=== PATIENT | female | born 1980 | race Caucasian/White ===

== ENCOUNTER → 2016-11-08 15:45 | Observation (INO) ==
[2016-11-08 14:18] LABS: Basophils % 0.5 %; Eosinophils # 0.2 K/mcL (0.0-0.6); Eosinophils % 2.2 %; Hematocrit 41.2 % (35.3-44.9); Hemoglobin 13.6 g/dL (11.5-15.4); Immature Granulocytes % 0.7 % (0-4); Lymphocytes # 1.7 K/mcL (0.6-4.6); Lymphocytes % 20.3 %; Mean Corpuscular Hemoglobin 29.8 pg (28.0-33.3); Mean Corpuscular Volume 90.2 fL (83.0-100.0); Mean Platelet Volume 11.2 fL (9.4-12.4); Monocytes # 0.6 K/mcL (0.0-1.3); Monocytes % 6.7 %; Neutrophils # 5.9 K/mcL (1.6-8.9); Platelet Count 196 K/mcL (140-400); Red Blood Count 4.57 M/mcL (3.82-4.97); Red Cell Distribution Width 12.7 % (11.5-14.5); Segmented Neutrophils % 69.6 %
[2016-11-08 14:23] LABS: Bilirubin,Urine Negative (Negative); Blood,Urine Negative (Negative); Clarity,Urine Clear (Clear); Color,Urine Yellow (Yellow); Glucose,Urine (UA) Normal (Normal); Ketones,Urine Trace mg/dL (Negative); Leukocyte Esterase,Urine Negative (Negative); Nitrite,Urine Negative (Negative); Protein,Urine Negative (Neg-Trace); Urobilinogen,Urine Normal (Normal)
[2016-11-08 14:29] LABS: Alanine Aminotransferase 16 Units/L (0-55); Aspartate Amino Transferase 15 Units/L (5-34); BUN/Creatinine Ratio 12 (6-26); Blood Urea Nitrogen 7 mg/dL (7-20); Lactate Dehydrogenase 140 Units/L (159-327); Uric Acid 5.9 mg/dL (2.6-6.0); eGFR For African Americans > 60 (> 60); eGFR For Non-African Americans > 60 (> 60)
--- NOTE | 2016-11-08 15:32 | Discharge Summary ---
Date of Encounter: 11/08/16 Time of Encounter: 15:33 - Discharge Diagnosis (1) 25 weeks gestation of Priority: Primary Status: Acute Comments: Admitted for observation (2) Anxiety Priority: Secondary Status: Acute Comments: Will restart Zoloft 25 mg daily. (3) Elevated blood pressure affecting in second trimester, antepartum Priority: Secondary Status: Acute Comments: HOLLY javier WNL. Discussed BP and lab work with Dr. Hubbard. Dr. Hubbard recommends follow up as scheduled in office. - Discharge Medications Prescriptions: Sertraline [Zoloft] 25 mg PO DAILY #30 tablet Home Medications: Insulin LISPRO [Humalog] 12 unit SQ QPM 11/08/16 [History] Multivitamin [Flintstones] 2 tab PO DAILY 11/08/16 [History] Sertraline [Zoloft] 25 mg PO DAILY #30 tablet 11/08/16 [Rx] metFORMIN [Glucophage] 1,000 mg PO BIDWM 11/08/16 [History] Allergies/Adverse Reactions: 3 Allergy/AdvReac Type Severity Reaction Status Date / Time No Known Allergies Allergy Verified 11/08/16 15:31 Data Procedures and tests throughout hospitalization: Laboratory Tests 11/08/16 11/08/16 11/08/16 14:10 14:10 14:10 WBC 8.5 RBC 4.57 Hgb 13.6 Hct 41.2 MCV 90.2 MCH 29.8 MCHC 33.0 RDW 12.7 Plt Count 196 MPV 11.2 Immature Gran % 0.7 Seg Neutrophils % 69.6 Lymphocytes % 20.3 Monocytes % 6.7 Eosinophils % 2.2 Basophils % 0.5 Neutrophils # 5.9 Lymphocytes # 1.7 Monocytes # 0.6 Eosinophils # 0.2 Basophils # 0.0 BUN 7 Creatinine 0.58 Est GFR ( Amer) > 60 Est GFR (Non-Af Amer) > 60 BUN/Creatinine Ratio 12 Uric Acid 5.9 AST 15 ALT 16 Lactate Dehydrogenase 140 L Urine Color Yellow Urine Clarity Clear Urine pH 7.0 Ur Specific [place] 1.010 Urine Protein Negative Urine Glucose (UA) Normal Urine Ketones Trace H Urine Blood Negative Urine Nitrite Negative Urine Bilirubin Negative Urine Urobilinogen Normal Ur Leukocyte Esterase Negative Labs on day of discharge: Labs from last 24 hours 08/22/17 08/22/17 08/22/17 14:10 14:10 14:10 WBC 8.5 RBC 4.57 Hgb 13.6 Hct 41.2 MCV 90.2 MCH 29.8 MCHC 33.0 RDW 12.7 Plt Count 196 MPV 11.2 Immature Gran % 0.7 Seg Neutrophils % 69.6 Lymphocytes % 20.3 Monocytes % 6.7 Eosinophils % 2.2 Basophils % 0.5 Neutrophils # 5.9 Lymphocytes # 1.7 Monocytes # 0.6 Eosinophils # 0.2 Basophils # 0.0 BUN 7 Creatinine 0.58 Est GFR ( Amer) > 60 Est GFR (Non-Af Amer) > 60 BUN/Creatinine Ratio 12 Uric Acid 5.9 AST 15 ALT 16 Lactate Dehydrogenase 140 L Urine Color Yellow Urine Clarity Clear Urine pH 7.0 Ur Specific [place] 1.010 Urine Protein Negative Urine Glucose (UA) Normal Urine Ketones Trace H Urine Blood Negative Urine Nitrite Negative Urine Bilirubin Negative Urine Urobilinogen Normal Ur Leukocyte Esterase Negative Date of admission: 11/08/16 13:47 Primary care physician: PCP NONE Discharging clinician: Dania Bolaños Anticipated date of discharge: 11/08/16 - Patient Status Disposition: Home, Self-Care Condition: Good Functional capacity at discharge: independent ambulation - Discharge Instructions Follow Up With: NONE,PCP [Primary Care Provider] - Maki Aguilar DO [Partnered Physician] - - Diet and Activity Activity: increase activity as tolerated Diet: regular diet 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 Denies CASILLAS, epigastric pain, visual disturbances. Time Attestation: Total time spent providing and/or coordinating discharge services: Time Spent: Less than 30 minutes Exam - Constitutional General appearance IM: cooperative, A&O X 3, no acute distress - Respiratory Respiratory exam: Present: wheezes - Cardiovascular Cardiovascular exam IM: Present: RRR, +S1, +S2 - GI/Abdominal GI/Abdominal exam IM: normal bowel sounds - Rectal Rectal exam: deferred - Extremities Exam Extremities exam IM: Present: full ROM, normal capillary refill, normal inspection - Neurological Exam Neurological exam: normal gait, oriented X3, reflexes normal - Other Additional findings: FHR 140 bpm and appropriate for gestational age. No ctx noted. - VTE Reasons for not Prescribing Prophylaxis: Treatment not Indicated - Low risk for VTE
== END | disposition home or self-care (01) ==
LOC: 1NENULAB
PROVIDERS: ADMIT Obstetrics & Gynecology; ATTEND Obstetrics & Gynecology

== ENCOUNTER 2017-02-07 09:51 | Inpatient (IN) ==
[2017-02-07] MEDS ORDERED: Ringers Solution, Lactated 1,000 ML IVC ONE (10:32)
[2017-02-07] MEDS ORDERED: CeFAZolin Premix DUPLEX 2,000 MG/50 ML BAG IVPB ONE (10:32)
[2017-02-07] MEDS ORDERED: Famotidine 20 MG/2 ML VIAL IVP ONE (10:32)
[2017-02-07] MEDS ORDERED: Metoclopramide 10 MG/2 ML VIAL IVP ONE (10:32)
[2017-02-07] MEDS ORDERED: Oxytocin 20 units/ LR 1000 mL 20 UNIT/1,000 ML BAG IVC ONE ×2 (10:32→21:07)
[2017-02-07] MEDS ORDERED: Oxytocin 20 units/ LR 1000 mL 20 UNIT/1,000 ML BAG IVC SCH ×3 (10:45→21:05)
[2017-02-07] MEDS ORDERED: Ringers Solution, Lactated 1,000 ML IVC SCH ×2 (10:45→11:15)
[2017-02-07 10:54] LABS: Basophils % 0.5 %; Eosinophils # 0.2 K/mcL (0.0-0.6); Eosinophils % 1.7 %; Hematocrit 38.9 % (35.3-44.9); Hemoglobin 13.3 g/dL (11.5-15.4); Immature Granulocytes % 0.6 % (0-4); Lymphocytes # 1.9 K/mcL (0.6-4.6); Mean Corpuscular HGB Conc 34.2 g/dL (31.6-35.5); Mean Corpuscular Hemoglobin 30.2 pg (28.0-33.3); Mean Corpuscular Volume 88.2 fL (83.0-100.0); Mean Platelet Volume 11.9 fL (9.4-12.4); Monocytes # 0.6 K/mcL (0.0-1.3); Monocytes % 6.6 %; Platelet Count 177 K/mcL (140-400); Red Blood Count 4.41 M/mcL (3.82-4.97); Red Cell Distribution Width 13.8 % (11.5-14.5); Segmented Neutrophils % 69.6 %
[2017-02-07 11:01] LABS: Amphetamine Screen,Urine Negative ng/mL (Cutoff=1000); Barbiturate Screen,Urine Negative ng/mL (Cutoff=200); Benzodiazepines Screen,Urine Negative ng/mL (Cutoff=200); Cannabinoid Screen,Urine Negative ng/mL (Cutoff = 50); Cocaine Screen,Urine Negative ng/mL (Cutoff= 300); Opiate Screen,Urine Negative ng/mL (Cutoff=300); Phencyclidine Screen,Urine Negative ng/mL (Cutoff=25)
[2017-02-07 11:07] LABS: Alanine Aminotransferase 14 Units/L (0-55); Aspartate Amino Transferase 28 Units/L (5-34); BUN/Creatinine Ratio 17 (6-26); Glucose 77 mg/dL (70-99); Lactate Dehydrogenase 353 Units/L (159-327); Uric Acid 7.5 mg/dL (2.6-6.0); eGFR For African Americans > 60 (> 60); eGFR For Non-African Americans > 60 (> 60)
[2017-02-07 11:08] LABS: Blood Urea Nitrogen 10 mg/dL (7-20)
[2017-02-07] MEDS ORDERED: Ondansetron 4 MG/2 ML VIAL IVP PRN (11:11)
[2017-02-07] MEDS ORDERED: Famotidine 20 MG/2 ML VIAL IVP PRN (11:11)
[2017-02-07] MEDS ORDERED: *HR* Nalbuphine 20 MG/ML AMPUL IVP PRN (11:11)
[2017-02-07] MEDS ORDERED: Naloxone 0.4 MG/ML INJ IVP PRN (11:11)
--- NOTE | 2017-02-07 11:18 | OB Labor Progress Note ---
Date of Encounter: 02/07/17 Time of Encounter: 11:01 Labor Progress Note - Subjective Subjective: Patient resting in bed. Dr. Aguilar at bedside for ultrasound to verify presentation. Presentation VTX. Discussed POC with patient. Patient denies any questions or concerns. - Cervix Cervix: 3.5/80/-1 - Heart Tones Heart Tones: 130 bpm moderate variability +15x15 accels no decels noted. Cat. 1 tracing. - [place]: none noted - Interventions Interventions: SVE, AROM moderate amount of clear fluid. Patient tolerated well. - Plan Plan: Continue labor management. Patient may have Nubain or epidural for pain management.
[2017-02-07] MEDS ORDERED: *HR* Ropivacaine/PF 0.2% 10 ML AMPUL EP ONE (11:20)
[2017-02-07] MEDS ORDERED: Ringers Solution, Lactated 500 ML IVC ONE (11:20)
[2017-02-07] MEDS ORDERED: EPHEDrine 50 MG/ML VIAL IVP PRN (11:20)
[2017-02-07 11:22] LABS: Neutrophils # 6.1 K/mcL (1.6-8.9)
--- NOTE | 2017-02-07 11:23 | Anesthesia Evaluation PreOp ---
Date of Encounter: 02/07/17 Time of Encounter: 11:10 - Past History Planned Operation: ALYSSA Cardiac History: Denies any Significant Hx Pulmonary History: Denies Any Significant HX CLOTH PICKER History: Denies Any Significant HX Other Medical History: Diabetes Type II (Gestational - Insulin and Metformin) Anesthesia History: Past Anesthesia (No prior surgeries. No family history of complications. No complications with previous Epidurals.) : Yes Alcohol Use: none Drug use: none Medications and Allergies Insulin LISPRO [Humalog] 10 unit SQ QAM 11/08/16 [History] Multivitamin [Flintstones] 2 tab PO DAILY 11/08/16 [History] metFORMIN [Glucophage] 1,000 mg PO BID 11/08/16 [History] Insulin LISPRO 40 units SQ QPM 02/07/17 [History] Sertraline [Zoloft] 50 mg PO DAILY 02/07/17 [History] 3 Allergy/AdvReac Type Severity Reaction Status Date / Time No Known Allergies Allergy Verified 11/08/16 15:31 - Meds/Allergy Pre-op Review Medications Reviewed: Yes Allergies Reviewed: Yes Beta Blockers on Current Med List: No Anesthesia Results - Labs 02/07/17 10:39 Anesthesia Exam Height: 1.7m Weight: 100kg NPO (# of Hours): >4hr - HEENT Pupil (Motor): Pupils equal Mallampati: II Teeth: Normal Oral Opening: Greater than 3 - CLOTH PICKER LOC: Oriented CLOTH PICKER Motor: Normal RUE, Normal LUE, Normal RLE, Normal LLE, Normal Face CLOTH PICKER Sensory: Normal: RUE, LUE, RLE, LLE, Face - Cardiac Rhythm: Regular Murmur: None JVD: No Carotid Bruit: No - Pulmonary Breath Sounds: bilateral Clear Respiratory Effort: Symmetrical Anesthesia Assess/Plan ASA Score: 2 Modified Elijah Scale for Level of Consciousness: Cooperative, oriented, and tranquil Anesthetic Plan: Regional Autologous Blood: Yes Monitoring Plan: Standard Monitors Recovery Plan: Other
[2017-02-07] MEDS ORDERED: Epidural Premix (fent/bupiv) 110 ML EP SCH (11:30)
[2017-02-07] MEDS ORDERED: Epidural Premix (fent/bupiv) 110 ML EP ONE ×2 (12:28→18:43)
[2017-02-07] MEDS ORDERED: ROPIVACAINE HCL/PF 0.5% 30 ML VIAL ONE (12:28)
--- NOTE | 2017-02-07 12:55 | Anesthesia Procedures ---
Date of Encounter: 02/07/17 Time of Encounter: 12:30 Procedures: Anesthesia - Epidural/Spinal Patient ID/Chart reviewed: Yes Patient examined: Yes OB Eval: Gestational age: 38 OB Eval: : 4 OB Eval: Hx Para: 3 OB Eval: Dilated at (cm): 4 OB Eval: Contractions: Non-stressed pattern Consent Obtained: Yes Supplemental Oxygen: None/Room Air Site Prep: Aseptic Technique, Sterile prep and drape, 0.5% Chlorhexidine/Alcohol Patient position: upright Local Anesthetic: Lidocaine 1% Amount of Local Anesthetic used: 2 Touhy Needle Gauge: 18 Touhy Needle Depth (cm): 8 Catheter Depth at Skin (cm): 15 Test Dose (1.5% Lido + Epi): Volume given (mls): 4 Test Dose Result: Negative Loading Dose: Other: Ropivacaine 0.5% 10mL Loading Dose Administered: Thru Catheter Infusion Med: 0.125% Bupivacaine w/ 2 mcg/ml Fentanyl Infusion Rate (mls/hr): 16 (Bolus 4mL q15min; Max 3/hr) Catheter Secured in Place: Tegaderm Interspace Used: L2-L3 Loss of Resistance (DREW): Yes Blood: No CSF: No Paresthesia: No Procedure: x1 attempt. Patient tolerated well. Vitals + FHT's: VSS and FHR stable throughout. See nursing documentation.
--- NOTE | 2017-02-07 15:00 | OB Labor Progress Note ---
Date of Encounter: 02/07/17 Time of Encounter: 14:58 Labor Progress Note - Subjective Subjective: Patient resting comfortably with epidural in place. Patient denies any questions or concerns. - Cervix Cervix: 5/90/-1 - Heart Tones Heart Tones: 135 bpm moderate variability +15x15 accels no decels noted. CAt. 1 tracing. - [place]: 2-3.5 min apart - Interventions Interventions: SVE, IUPC placed without difficulty. Patient tolerated well. - Plan Plan: Continue labor management.
--- NOTE | 2017-02-07 19:58 | OB/GYN Procedure Note ---
Delivery - Delivery Date: 02/07/17 Provider: Dania Bolaños ([facility]) Intrapartum events: meconium (light) Delivery induction: AROM, oxytocin Delivery monitor: external FHT, internal uterine Anesthesia: epidural Estimated Blood Loss: 300 - (s) Infant A Delivery Date: 02/07/17 Delivery Time: 19:28 Presentation: vertex Position: YOVANY Route of delivery: Gender: Male Viability: Viable Pounds: 7 Ounces: 7 Weight Gram: 3375 kg at 1 minute: 7 at 5 mins: 9 Shoulder Dystocia: not encountered Specimens collected: cord blood Placenta: spontaneous Cord: 3 umbilical vessels - Repair Episiotomy: none Laceration Description: Perineal - 1st Degree (Repaired with 3-0 Vicryl) - Complications Delivery complications: meconium Delivery comments: Called to delivery room for patient feeling rectal pressure. Under maternal effort, spontaneous vaginal delivery of viable male weighing 7#7oz. over 1st degree perineal laceration. Repaired with 3-0 Vicryl. Elbert to maternal abdomen. Cord clamped and cut after pulsation ceased. Spontaneous delivery of intact placenta. EBL 300 mL. No nuchal cord or shoulder dystocia encountered. Light meconium fluid noted. Nursery staff and respiratory staff at bedside for delivery. Mother and stable in room for 2 hour recovery. - Disposition Mom disposition: stable in LDR Elbert disposition: stable in LDR
[2017-02-07] MEDS ORDERED: Rho Immune Globulin 1,500 UNIT SYRINGE IM PRN (21:05)
[2017-02-07] MEDS ORDERED: Measles/Mumps/Rubella Vacc 0.5 ML VIAL SQ PRN (21:05)
[2017-02-07] MEDS ORDERED: Acetaminophen 325 MG TABLET PO PRN (21:05)
[2017-02-07] MEDS ORDERED: Ibuprofen 600 MG TABLET PO PRN (21:05)
[2017-02-07] MEDS ORDERED: Benzocaine/Menthol 56 GM AEROSOL SPRAY TP PRN (21:05)
[2017-02-08 04:34] LABS: Basophils % 0.4 %; Eosinophils # 0.2 K/mcL (0.0-0.6); Eosinophils % 1.6 %; Hematocrit 34.9 % (35.3-44.9); Hemoglobin 11.8 g/dL (11.5-15.4); Immature Granulocytes % 0.4 % (0-4); Lymphocytes % 20.6 %; Mean Corpuscular HGB Conc 33.8 g/dL (31.6-35.5); Mean Corpuscular Hemoglobin 30.2 pg (28.0-33.3); Mean Corpuscular Volume 89.3 fL (83.0-100.0); Mean Platelet Volume 11.6 fL (9.4-12.4); Monocytes # 0.7 K/mcL (0.0-1.3); Neutrophils # 6.7 K/mcL (1.6-8.9); Platelet Count 168 K/mcL (140-400); Red Blood Count 3.91 M/mcL (3.82-4.97); Red Cell Distribution Width 14.1 % (11.5-14.5)
[2017-02-08 04:53] LABS: Alanine Aminotransferase 12 Units/L (0-55); Aspartate Amino Transferase 16 Units/L (5-34); BUN/Creatinine Ratio 18 (6-26); Blood Urea Nitrogen 10 mg/dL (7-20); Uric Acid 7.8 mg/dL (2.6-6.0); eGFR For African Americans > 60 (> 60); eGFR For Non-African Americans > 60 (> 60)
[2017-02-08 05:28] LABS: Lactate Dehydrogenase 203 Units/L (159-327)
[2017-02-08] MEDS ORDERED: Prenatal Vit/FA 1 EACH TABLET PO SCH (09:00)
[2017-02-08 09:31] VITALS: BP 134/85
--- NOTE | 2017-02-08 09:36 | Discharge Summary ---
Date of Encounter: 02/08/17 Time of Encounter: 09:32 - Discharge Diagnosis (1) Gestational diabetes Priority: Secondary Status: Acute Qualifiers: Gestational diabetes mellitus control: insulin-controlled Trimester: third trimester Qualified Code(s): O24.414 - Gestational diabetes mellitus in , insulin controlled (2) Gestational hypertension Priority: Secondary Status: Acute Qualifiers: Trimester: third trimester Qualified Code(s): O13.3 - Gestational [ -induced] hypertension without significant proteinuria, third trimester (3) Vaginal delivery Priority: Primary Status: Acute Comments: Pt meeting all milestones. - Discharge Medications Prescriptions: Ibuprofen [Motrin] 600 mg PO Q6HR PRN #60 tablet PRN Reason: Cramping Docusate [Colace] 100 mg PO BID #60 capsule Home Medications: Multivitamin [Flintstones] 2 tab PO DAILY 11/08/16 [History] metFORMIN [Glucophage] 1,000 mg PO BID 11/08/16 [History] Sertraline [Zoloft] 50 mg PO DAILY 02/07/17 [History] Benzocaine/Menthol Flora [Dermoplast Flora] 1 appl TP QID PRN aerosol 02/08/17 [Rx] Docusate [Colace] 100 mg PO BID #60 capsule 02/08/17 [Rx] Ibuprofen [Motrin] 600 mg PO Q6HR PRN #60 tablet 02/08/17 [Rx] Allergies/Adverse Reactions: 3 Allergy/AdvReac Type Severity Reaction Status Date / Time No Known Allergies Allergy Verified 11/08/16 15:31 Data Procedures and tests throughout hospitalization: Laboratory Tests 02/07/17 02/07/17 02/07/17 10:39 10:39 10:39 WBC 8.8 RBC 4.41 Hgb 13.3 Hct 38.9 MCV 88.2 MCH 30.2 MCHC 34.2 RDW 13.8 Plt Count 177 MPV 11.9 Immature Gran % 0.6 Seg Neutrophils % 69.6 Lymphocytes % 21.0 Monocytes % 6.6 Eosinophils % 1.7 Basophils % 0.5 Neutrophils # 6.1 Lymphocytes # 1.9 Monocytes # 0.6 Eosinophils # 0.2 Basophils # 0.0 BUN 10 Creatinine 0.59 Est GFR ( Amer) > 60 Est GFR (Non-Af Amer) > 60 BUN/Creatinine Ratio 17 Glucose 77 POC Glucose Uric Acid 7.5 H AST 28 ALT 14 Lactate Dehydrogenase 353 H Urine Opiates Screen Negative Ur Barbiturates Screen Negative Ur Phencyclidine Scrn Negative Ur Amphetamines Screen Negative U Benzodiazepines Scrn Negative Urine Cocaine Screen Negative U Marijuana (THC) Screen Negative Screen Baby's Blood Type Mother's Blood Type Rhogam Indicated Rhogam Req for Mother 02/07/17 02/07/17 02/08/17 13:05 19:59 00:30 WBC RBC Hgb Hct MCV MCH MCHC RDW Plt Count MPV Immature Gran % Seg Neutrophils % Lymphocytes % Monocytes % Eosinophils % Basophils % Neutrophils # Lymphocytes # Monocytes # Eosinophils # Basophils # BUN Creatinine Est GFR ( Amer) Est GFR (Non-Af Amer) BUN/Creatinine Ratio Glucose POC Glucose 75 109 H Uric Acid AST ALT Lactate Dehydrogenase Urine Opiates Screen Ur Barbiturates Screen Ur Phencyclidine Scrn Ur Amphetamines Screen U Benzodiazepines Scrn Urine Cocaine Screen U Marijuana (THC) Screen Screen NEGATIVE Baby's Blood Type O RH POSITIVE Mother's Blood Type O RH NEGATIVE Rhogam Indicated YES Rhogam Req for Mother 1 02/08/17 02/08/17 04:18 04:18 WBC 9.5 RBC 3.91 Hgb 11.8 D Hct 34.9 L MCV 89.3 MCH 30.2 MCHC 33.8 RDW 14.1 Plt Count 168 MPV 11.6 Immature Gran % 0.4 Seg Neutrophils % 70.0 Lymphocytes % 20.6 Monocytes % 7.0 Eosinophils % 1.6 Basophils % 0.4 Neutrophils # 6.7 Lymphocytes # 2.0 Monocytes # 0.7 Eosinophils # 0.2 Basophils # 0.0 BUN 10 Creatinine 0.55 L Est GFR ( Amer) > 60 Est GFR (Non-Af Amer) > 60 BUN/Creatinine Ratio 18 Glucose POC Glucose Uric Acid 7.8 H AST 16 ALT 12 Lactate Dehydrogenase 203 Urine Opiates Screen Ur Barbiturates Screen Ur Phencyclidine Scrn Ur Amphetamines Screen U Benzodiazepines Scrn Urine Cocaine Screen U Marijuana (THC) Screen Screen Baby's Blood Type Mother's Blood Type Rhogam Indicated Rhogam Req for Mother Labs on day of discharge: Labs from last 24 hours 02/08/17 02/08/17 02/08/17 04:18 04:18 00:30 WBC 9.5 RBC 3.91 Hgb 11.8 D Hct 34.9 L MCV 89.3 MCH 30.2 MCHC 33.8 RDW 14.1 Plt Count 168 MPV 11.6 Immature Gran % 0.4 Seg Neutrophils % 70.0 Lymphocytes % 20.6 Monocytes % 7.0 Eosinophils % 1.6 Basophils % 0.4 Neutrophils # 6.7 Lymphocytes # 2.0 Monocytes # 0.7 Eosinophils # 0.2 Basophils # 0.0 BUN 10 Creatinine 0.55 L Est GFR ( Amer) > 60 Est GFR (Non-Af Amer) > 60 BUN/Creatinine Ratio 18 Glucose POC Glucose 109 H Uric Acid 7.8 H AST 16 ALT 12 Lactate Dehydrogenase 203 Urine Opiates Screen Ur Barbiturates Screen Ur Phencyclidine Scrn Ur Amphetamines Screen U Benzodiazepines Scrn Urine Cocaine Screen U Marijuana (THC) Screen Screen Baby's Blood Type Mother's Blood Type Rhogam Indicated Rhogam Req for Mother 02/07/17 02/07/17 02/07/17 19:59 13:05 10:39 WBC RBC Hgb Hct MCV MCH MCHC RDW Plt Count MPV Immature Gran % Seg Neutrophils % Lymphocytes % Monocytes % Eosinophils % Basophils % Neutrophils # Lymphocytes # Monocytes # Eosinophils # Basophils # BUN 10 Creatinine 0.59 Est GFR ( Amer) > 60 Est GFR (Non-Af Amer) > 60 BUN/Creatinine Ratio 17 Glucose 77 POC Glucose 75 Uric Acid 7.5 H AST 28 ALT 14 Lactate Dehydrogenase 353 H Urine Opiates Screen Ur Barbiturates Screen Ur Phencyclidine Scrn Ur Amphetamines Screen U Benzodiazepines Scrn Urine Cocaine Screen U Marijuana (THC) Screen Screen NEGATIVE Baby's Blood Type O RH POSITIVE Mother's Blood Type O RH NEGATIVE Rhogam Indicated YES Rhogam Req for Mother 1 02/07/17 02/07/17 10:39 10:39 WBC 8.8 RBC 4.41 Hgb 13.3 Hct 38.9 MCV 88.2 MCH 30.2 MCHC 34.2 RDW 13.8 Plt Count 177 MPV 11.9 Immature Gran % 0.6 Seg Neutrophils % 69.6 Lymphocytes % 21.0 Monocytes % 6.6 Eosinophils % 1.7 Basophils % 0.5 Neutrophils # 6.1 Lymphocytes # 1.9 Monocytes # 0.6 Eosinophils # 0.2 Basophils # 0.0 BUN Creatinine Est GFR ( Amer) Est GFR (Non-Af Amer) BUN/Creatinine Ratio Glucose POC Glucose Uric Acid AST ALT Lactate Dehydrogenase Urine Opiates Screen Negative Ur Barbiturates Screen Negative Ur Phencyclidine Scrn Negative Ur Amphetamines Screen Negative U Benzodiazepines Scrn Negative Urine Cocaine Screen Negative U Marijuana (THC) Screen Negative Screen Baby's Blood Type Mother's Blood Type Rhogam Indicated Rhogam Req for Mother Date of admission: 02/07/17 09:51 Primary care physician: PCP NONE Consults: 02/07/17 21:05 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 Car 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 [CONS] Routine Comment: Vaginal delivery, consult needed Discharging clinician: Sally Moser Anticipated date of discharge: 02/08/17 - Patient Status Disposition: Home, Self-Care Condition: Good Functional capacity at discharge: independent ambulation Overall status at discharge: patient is progressing back to baseline - Discharge Instructions Follow Up With: NONE,PCP [Primary Care Provider] - Maki Aguilar, [Partnered Physician] - - Diet and Activity Activity: increase activity as tolerated Diet: regular diet Hospital Course Reason for admission: induction of labor Delivery: Episiotomy: none Laceration: 1st degree Other procedures: none complications: none Discharge diagnosis: IUP at term delivered baby: male Hospital course: - Delivery Date: 02/07/17 Provider: Dania Bolaños SN) Intrapartum events: meconium (light) Delivery induction: AROM, oxytocin Delivery monitor: external FHT, internal uterine Anesthesia: epidural Estimated Blood Loss: 300 - (s) Infant A Delivery Date: 02/07/17 Infant Delivery Time: 19:28 Presentation: vertex Position: YOVANY Route of delivery: Gender: Male Viability: Viable Pounds: 7 Ounces: 7 Weight Gram: 3375 kg at 1 minute: 7 at 5 mins: 9 Shoulder Dystocia: not encountered Specimens collected: cord blood Placenta: spontaneous Cord: 3 umbilical vessels - Repair Episiotomy: none Laceration Description: Perineal - 1st Degree (Repaired with 3-0 Vicryl) - Complications Delivery complications: meconium - Disposition Mom disposition: home PPD1 disposition: home with mother, bottle feeding Time Attestation: Total time spent providing and/or coordinating discharge services: Time Spent: Less than 30 minutes Exam - Constitutional Vitals: Temp Pulse Resp BP Pulse Ox 97.7 F 86 18 134/85 99 02/08/17 09:23 02/08/17 09:23 02/08/17 09:23 02/08/17 09:23 02/08/17 09:23 General appearance IM: A&O X 3 - Respiratory Respiratory exam: Present: CTAB - Cardiovascular Cardiovascular exam IM: Present: RRR, +S1, +S2 - GI/Abdominal GI/Abdominal exam IM: soft, no peritoneal signs - Rectal Rectal exam: deferred - External exam: normal external exam Uterine Tone: Firm Uterus Position: At Umbilicus, Left of Midline - Extremities Exam Extremities exam IM: Present: normal inspection - Neurological Exam Neurological exam: normal gait, oriented X3 - Psychiatric Additional comments: reports good mood on zoloft
== END 2017-02-08 15:38 | disposition home or self-care (01) | DRG 560 ==
LOC: 1NENULAB → OBSVTOIN 09:51 → 1NENUOBS 22:07
PROVIDERS: ADMIT Obstetrics & Gynecology; ATTEND Obstetrics & Gynecology